=== PATIENT | male | born 1960 | race Caucasian/White ===

== ENCOUNTER 2018-04-10 15:24 | Emergency (ER) | payer BC ==
[2018-04-10] MEDS ORDERED: BENADRYL 50 MG/ML ONE (15:27)
[2018-04-10] MEDS ORDERED: Pepcid 20 MG VIAL IV ONE ×2 (15:27→15:28)
[2018-04-10] MEDS ORDERED: solu-MEDROL 125 MG ONE (15:27)
--- NOTE | 2018-04-10 15:27 | ERPHSYRPT ---
- History of Present Illness Time Seen by Provider: 04/10/18 15:25 Source: patient, family Exam Limitations: no limitations Physician History: 58 y/o white male, who has no known drug allergies, presents with h/o receiving topical dilating medication for his eyes for an eye exam yesterday. pt began having a skin rash. pt was given benadryl. pt seen at [facility] at noon and another dose if benadryl given at noon. rash resolving but pt began complaining of worsening indigestion. he now has cp. pt has no known heart disease. pain is burning and is substernal without radiation Timing/Duration: today Severity: moderate Modifying Factors: Improves With: nothing Associated Symptoms: nausea, heartburn, chest pain, No vomiting, No abdominal pain, No shortness of breath, No diaphoresis, No cough, No fever, No headaches, No loss of appetite, No malaise, No rash, No syncope, No seizure, No weakness Allergies/Adverse Reactions: acetaminophen [From [place]] Adverse Reaction (Mild, Verified 04/10/18 15:57) hydrocodone [From [place]] Adverse Reaction (Mild, Verified 04/10/18 15:57) - Review of Systems Constitutional: No Symptoms, No Fever Eyes: No Symptoms Ears, Nose, & Throat: No Symptoms Respiratory: No Symptoms, No Cough, No Dyspnea, No Stridor, No Wheezing Cardiac: Chest Pain, No Palpitations, No Syncope Abdominal/Gastrointestinal: Nausea, No Vomiting, No Diarrhea Genitourinary Symptoms: No Symptoms, No Dysuria, No Frequency, No Hematuria Musculoskeletal: No Symptoms Skin: No Symptoms Neurological: No Symptoms Psychological: No Symptoms Endocrine: No Symptoms Hematologic/Lymphatic: No Symptoms Immunological/Allergic: No Symptoms All Other Systems: Reviewed and Negative - Past Medical History Pertinent Past Medical History: Yes Neurological History: No Pertinent History ENT History: No Pertinent History Cardiac History: No Pertinent History Respiratory History: No Pertinent History Endocrine Medical History: No Pertinent History Musculoskeletal History: No Pertinent History GI Medical History: No Pertinent History History: No Pertinent History Psycho-Social History: No Pertinent History Male Reproductive Disorders: No Pertinent History - Past Surgical History Neuro Surgical History: No Pertinent History Cardiac: No Pertinent History Respiratory: No Pertinent History Gastrointestinal: No Pertinent History Genitourinary: No Pertinent History Musculoskeletal: No Pertinent History Male Surgical History: No Pertinent History - Nursing Vital Signs Nursing Vital Signs: Initial Vital Signs Pulse Rate 75 04/10/18 15:24 Respiratory Rate 18 04/10/18 15:24 Blood Pressure 203/108 04/10/18 15:24 O2 Sat by Pulse Oximetry 96 04/10/18 15:24 Pain Scale Pain Intensity 0 - Physical Exam General Appearance: moderate distress, alert, anxiety Eye Exam: PERRL/EOMI, eyes nml inspection Ears, Nose, Throat Exam: normal ENT inspection, TMs normal, moist mucous membranes Neck Exam: normal inspection, non-tender, supple, full range of motion Respiratory Exam: normal breath sounds, chest tenderness, lungs clear, airway intact, No respiratory distress, No accessory muscle use, No rhonchi, No wheezing, No stridor Cardiovascular Exam: regular rate/rhythm, normal heart sounds, normal peripheral pulses Gastrointestinal/Abdomen Exam: soft, normal bowel sounds, No tenderness, No guarding, No rebound Rectal Exam: not done Back Exam: normal inspection, normal range of motion, No CVA tenderness, No vertebral tenderness Extremity Exam: normal inspection, normal range of motion, pelvis stable Neurologic Exam: alert, oriented x 3, cooperative, machine zipper trimmer II-XII nml as tested Skin Exam: normal color, warm, dry Lymphatic Exam: No adenopathy SpO2 Interpretation: normal Oxygen Delivery: Room Air - Course Nursing assessment & vital signs reviewed: Yes EKG Interpreted by Me: RATE (78), Sinus Rhythm, NORMAL AXIS, NORMAL INTERVALS, NORMAL QRS (no acute ischemic changes) Ordered Tests: Active Orders 24 hr Category Date Time Status Vp Compliance STAT Care 04/10/18 15:28 Active EKG-ER Only STAT Care 04/10/18 15:28 Active IV Insertion STAT Care 04/10/18 15:28 Active CHEST 1 VIEW (PORTABLE) Stat Exams 04/10/18 15:28 Completed CBC W DIFF Stat Lab 04/10/18 15:44 Completed CMP Stat Lab 04/10/18 15:44 Completed TROPONIN Q3H Lab 04/10/18 15:44 Completed TROPONIN Q3H Lab 04/10/18 18:45 Ordered TROPONIN Q3H Lab 04/10/18 21:45 Ordered Medication Summary Discontinued Medications Generic Name Dose Route Start Last Admin Trade Name Freq PRN Reason Stop Dose Admin Al Hydrox/Mg Hydrox/Simethicone Confirm 04/10/18 16:19 Maalox Es 30 Ml Unit Dose Administered 10/11/18 16:20 Dose 30 ml .ROUTE .STK-MED ONE Diphenhydramine HCl Confirm 04/10/18 15:27 Benadryl 50 Mg/Ml Administered 04/10/18 15:28 Dose 50 mg .ROUTE .STK-MED ONE Diphenhydramine HCl 25 mg 04/10/18 15:28 04/10/18 15:52 Benadryl 50 Mg/Ml IV 04/10/18 15:29 25 mg STAT ONE Administration Famotidine Confirm 04/10/18 15:27 Pepcid 20 Mg Vial Administered 04/10/18 15:28 Dose 40 mg IV .STK-MED ONE Famotidine 40 mg 04/10/18 15:28 04/10/18 15:51 Pepcid 20 Mg Vial IV 04/10/18 15:29 40 mg STAT ONE Administration Lidocaine HCl Confirm 04/10/18 16:19 Xylocaine Hcl Viscous * Administered 04/10/18 16:20 Dose 15 ml .ROUTE .STK-MED ONE Magnesium Hydroxide 45 ml 04/10/18 16:15 04/10/18 16:24 Gi Cocktail 45 Ml (Maalox/Lidocaine) PO 04/10/18 16:16 45 ml STAT ONE Administration Methylprednisolone Sodium Succinate Confirm 04/10/18 15:27 Solu-Medrol 125 Mg Administered 04/10/18 15:28 Dose 125 mg .ROUTE .STK-MED ONE Methylprednisolone Sodium Succinate 125 mg 04/10/18 15:28 04/10/18 15:52 Solu-Medrol 125 Mg IV 04/10/18 15:29 125 mg STAT ONE Administration Ondansetron HCl 4 mg 04/10/18 15:31 04/10/18 15:52 Zofran 4 Mg/2 Ml Vial IV 04/10/18 15:32 4 mg STAT ONE Administration Ondansetron HCl Confirm 04/10/18 15:33 Zofran 4 Mg/2 Ml Vial Administered 04/10/18 15:34 Dose 4 mg .ROUTE .STK-MED ONE Lab/Rad Data: Laboratory Result Diagrams 04/10/18 15:44 04/10/18 15:44 Laboratory Results 04/10/18 04/10/18 04/10/18 Range/Units 15:44 15:44 15:44 WBC 13.9 H (4.0-10.5) K/mm3 RBC 5.91 H (4.1-5.6) M/mm3 Hgb 18.7 H (12.5-18.0) gm/dl Hct 53.3 H (42-50) % MCV 90.2 (78-100) fl MCH 31.6 (26-32) pg MCHC 35.1 (32-36) g/dl RDW 13.6 (11.5-14.0) % Plt Count 281 (150-450) K/mm3 MPV 9.3 (6-9.5) fl Gran % 72.4 H (36.0-66.0) % Eos # (Auto) 0.03 (0-0.5) Absolute Lymphs (auto) 3.09 (1.0-4.6) Absolute Monos (auto) 0.70 (0.0-1.3) Lymphocytes % 22.2 L (24.0-44.0) % Monocytes % 5.0 (0.0-12.0) % Eosinophils % 0.2 (0.00-5.0) % Basophils % 0.2 (0.0-0.4) % Absolute Granulocytes 10.04 H (1.4-6.9) Basophils # 0.03 (0-0.4) Sodium 140 (137-145) mmol/L Potassium 4.8 (3.5-5.1) mmol/L Chloride 106 (98-107) mmol/L Carbon Dioxide 23 (22-30) mmol/L Anion Gap 15.4 H (5-15) MEQ/L BUN 15 (9-20) mg/dL Creatinine 0.85 (0.66-1.25) mg/dL Estimated GFR > 60.0 ML/MIN Glucose 124 H (74-106) mg/dL Calcium 9.9 (8.4-10.2) mg/dL Total Bilirubin 0.80 (0.2-1.3) mg/dL AST 26 (17-59) U/L ALT 26 (0-50) U/L Alkaline Phosphatase 96 (38-126) U/L Troponin I < 0.012 (0.000-0.034) ng/mL Serum Total Protein 7.9 (6.3-8.2) g/dL Albumin 4.8 (3.5-5.0) g/dL - Progress Progress: improved, re-examined Progress Note: 04/10/18 16:16 pt states he is feeling much better. Counseled pt/family regarding: lab results, diagnosis, need for follow-up, rad results - Departure Time of Disposition: 16:31 Departure Disposition: Home Clinical Impression: Chest pain, Allergic reaction Condition: Stable Critical Care Time: No Referrals: AARON DELGADO [Primary Care Provider] - Additional Instructions: drink plenty of fluids. follow up with primary doctor for further management. continue benadryl 25mg orally 3 times daily for 3 days. Prescriptions: Prednisone 10 mg [Deltasone 10 mg] 10 mg PO TID #12 tablet Ranitidine HCl [Zantac] 150 mg PO BID #10 tablet
[2018-04-10] MEDS ORDERED: BENADRYL 50 MG/ML IV ONE (15:28)
[2018-04-10] MEDS ORDERED: solu-MEDROL 125 MG IV ONE (15:28)
[2018-04-10] MEDS ORDERED: Zofran 4 MG/2 ML VIAL IV ONE (15:31)
[2018-04-10] MEDS ORDERED: Zofran 4 MG/2 ML VIAL ONE (15:33)
[2018-04-10 15:43] LABS: BASOPHIL % 0.2 % (0.0-0.4); Basophil (Absolute #) 0.03 (0-0.4); Eosinophil % 0.2 % (0.00-5.0); Eosinophil (Absolute #) 0.03 (0-0.5); Granulocyte Absolute (ANC) 10.04 (1.4-6.9); Granulocytes % 72.4 % (36.0-66.0); Hematocrit 53.3 % (42-50); Hemoglobin 18.7 gm/dl (12.5-18.0); Lymphocyte (Absolute #) 3.09 (1.0-4.6); Lymphocytes % 22.2 % (24.0-44.0); Mean Cell Volume 90.2 fl (78-100); Mean Corpuscular Hemoglobin 31.6 pg (26-32); Mean Corpuscular Hgb Concent. 35.1 g/dl (32-36); Mean Platelet Volume 9.3 fl (6-9.5); Platelet Count 281 K/mm3 (150-450); Red Blood Count 5.91 M/mm3 (4.1-5.6); Red Cell Distribution Width 13.6 % (11.5-14.0); White Blood Count 13.9 K/mm3 (4.0-10.5)
[2018-04-10 16:05] LABS: ALBUMIN 4.8 g/dL (3.5-5.0); ALKALINE PHOSPHATASE 96 U/L (38-126); ANION GAP 15.4 MEQ/L (5-15); BLOOD UREA NITROGEN 15 mg/dL (9-20); CHLORIDE 106 mmol/L (98-107); Calcium 9.9 mg/dL (8.4-10.2); Carbon Dioxide 23 mmol/L (22-30); Creatinine 1 0.85 mg/dL (0.66-1.25); Glucose 124 mg/dL (74-106); Potassium 4.8 mmol/L (3.5-5.1); SGOT/AST 26 U/L (17-59); SGPT/ALT 26 U/L (0-50); SODIUM 140 mmol/L (137-145); Total Protein 7.9 g/dL (6.3-8.2)
--- NOTE | 2018-04-10 16:09 | XRAY ---
Indication: Chest pain. Short of breath. Comparison: December 28, 2008. Portable chest again demonstrates normal heart and lungs. Bony thorax intact with interval distal right clavicle resection.
[2018-04-10] MEDS ORDERED: GI COCKTAIL 45 ML (Maalox/Lidocaine) PO ONE (16:15)
[2018-04-10] MEDS ORDERED: MAALOX ES 30 ML UNIT DOSE ONE (16:19)
[2018-04-10] MEDS ORDERED: XYLOCAINE HCl Viscous ONE (16:19)
[2018-04-10 16:26] VITALS: O2SAT 98
[2018-04-10 17:15] VITALS: BP 131/78; PULSE 80
== END 2018-04-10 17:14 | disposition home or self-care (01) ==
LOC: ED 15:24
DX: R07.9 Chest pain, unspecified (principal); R21 Rash and other nonspecific skin eruption; T78.40XA Allergy, unspecified, initial encounter
CPT/HCPCS: 36000; 36415; 71045; 80053; 84484; 85025; 93005; 93041; 96374; 96375; 99284; J1200; J2405; J2930; A9270-GY

== ENCOUNTER 2018-04-11 21:50 | Observation (INO) | payer BC ==
[2018-04-11] MEDS ORDERED: Nitrostat 0.4 MG (ED) SL ONE ×3 (22:21→22:47)
[2018-04-11] MEDS ORDERED: BABY ASPIRIN 81 MG CHEW PO ONE (22:21)
[2018-04-11] MEDS ORDERED: BABY ASPIRIN 81 MG CHEW ONE (22:28)
[2018-04-11] MEDS ORDERED: Sodium Chloride 0.9% 1000 ML 1,000 ML IV SCH (22:30)
[2018-04-11 22:31] LABS: BASOPHIL % 0.3 % (0.0-0.4); Basophil (Absolute #) 0.05 (0-0.4); Eosinophil % 0.2 % (0.00-5.0); Eosinophil (Absolute #) 0.04 (0-0.5); Granulocyte Absolute (ANC) 15.18 (1.4-6.9); Hemoglobin 17.7 gm/dl (12.5-18.0); Lymphocyte (Absolute #) 3.49 (1.0-4.6); Lymphocytes % 17.5 % (24.0-44.0); Mean Cell Volume 91.9 fl (78-100); Mean Corpuscular Hemoglobin 31.9 pg (26-32); Mean Corpuscular Hgb Concent. 34.7 g/dl (32-36); Mean Platelet Volume 9.7 fl (6-9.5); Platelet Count 306 K/mm3 (150-450); Red Blood Count 5.55 M/mm3 (4.1-5.6); Red Cell Distribution Width 13.9 % (11.5-14.0)
--- NOTE | 2018-04-11 22:32 | ERPHSYRPT ---
- History of Present Illness Time Seen by Provider: 04/11/18 22:10 Historian: patient Exam Limitations: clinical condition Patient Subjective Stated Complaint: pt is alert and oriented. pt is ambulatory with steady gait. pt has c/o cp that sometimes radiates to his right side of his chest. pt denies n/v today but states he did vomit yesterday 2-3 times. pt states he has had some lightheadedness and dizziness associated with the chest pain. O2 NC applied. pt resting in bed. pedal pulses equal. Triage Nursing Assessment: see above Physician History: PATIENT WITH A HISTORY OF TYPE 2 DIABETES, RECENTLY TREATED FOR HYPERTENSION OVER PAST 2 WEEKS COMPLAINS OF SUBSTERNAL CHEST PAINS SINCE 12 NOON TODAY CONSTANT, PAIN SCALE 7/10. DENIES ASSOCIATED DYSPNEA, DIAPHORESIS, PALPITATIONS , RADIATION OF PAIN TO NECK, JAWS OR ARMS. HAS HAD A PREVIOUS STRESS TEST AT AGE 38. HAD ASSOCIATED DIZZINESS WITH HIS CHEST PAIN. HAD SIMILAR EPISODE OF CHEST PAIN WHILE IN THE EMERGENCY ROOM YESTERDAY FOR TREATMENT OF ALLERGIC REACTION. Timing/Duration: today Activities at Onset: none Quality: fullness, pressure Location: substernal Chest Pain Radiation: no radiation Severity of Pain-Max: moderate Modifying Factors: Improves With: nothing Prior Chest Pain/Cardiac Workup: no prior chest pain Nitro Today/Relief: no nitro taken today, provided by ED Aspirin Treatment Today: no aspirin today, 81 mg x 4, provided by ED Allergies/Adverse Reactions: acetaminophen [From [place]] Adverse Reaction (Mild, Verified 04/10/18 15:57) hydrocodone [From [place]] Adverse Reaction (Mild, Verified 04/10/18 15:57) Home Medications: Insulin Degludec [Tresiba Flextouch U-200] 60 units SQ DAILY 04/11/18 [History] Lisinopril 20 mg [Zestril 20 MG] 20 mg PO DAILY 04/11/18 [History] Metformin HCl Xr 500 mg [Glucophage XR 500 MG] 1,000 mg PO DAILY 04/11/18 [History] Zolpidem Tartrate 10 mg [Ambien 10 MG] 10 mg PO HS PRN PRN 04/11/18 [History ] Hx Tetanus, Diphtheria Vaccination/Date Given: No Immunizations Up to Date: Yes - Review of Systems Constitutional: No Fever, No Chills Eyes: No Symptoms Ears, Nose, & Throat: No Symptoms Respiratory: No Symptoms, No Cough, No Dyspnea Cardiac: Chest Pain, No Edema, No Syncope Abdominal/Gastrointestinal: No Symptoms, No Abdominal Pain, No Nausea, No Vomiting, No Diarrhea Genitourinary Symptoms: No Symptoms, No Dysuria Musculoskeletal: No Symptoms, No Back Pain, No Neck Pain Skin: No Symptoms, No Rash Neurological: No Dizziness, No Focal Weakness, No Sensory Changes Psychological: No Symptoms Endocrine: No Symptoms All Other Systems: Reviewed and Negative - Past Medical History Pertinent Past Medical History: Yes Neurological History: No Pertinent History ENT History: No Pertinent History Cardiac History: No Pertinent History Respiratory History: No Pertinent History Endocrine Medical History: Diabetes Type II Musculoskeletal History: No Pertinent History GI Medical History: No Pertinent History History: No Pertinent History Psycho-Social History: No Pertinent History Male Reproductive Disorders: No Pertinent History - Past Surgical History Past Surgical History: Yes Neuro Surgical History: No Pertinent History Cardiac: No Pertinent History Respiratory: No Pertinent History Gastrointestinal: No Pertinent History Genitourinary: No Pertinent History Musculoskeletal: No Pertinent History Male Surgical History: No Pertinent History Other Surgical History: shoulder on left shoulder - Social History Smoking Status: Current every day smoker How long have you smoked: 40 years Exposure to second hand smoke: Yes Drug Use: none Patient Lives Alone: No - Nursing Vital Signs Nursing Vital Signs: Initial Vital Signs Temperature 98.4 F 04/11/18 21:51 Pulse Rate 70 04/11/18 21:51 Respiratory Rate 16 04/11/18 21:51 Blood Pressure 191/93 04/11/18 21:51 O2 Sat by Pulse Oximetry 95 04/11/18 21:51 Pain Scale Pain Intensity 7 - Physical Exam General Appearance: no apparent distress, alert Eye Exam: PERRL/EOMI, eyes nml inspection Ears, Nose, Throat Exam: normal ENT inspection, moist mucous membranes Neck Exam: normal inspection, non-tender, supple, full range of motion Respiratory Exam: normal breath sounds, lungs clear, No respiratory distress Cardiovascular Exam: regular rate/rhythm, normal heart sounds Gastrointestinal/Abdomen Exam: soft, normal bowel sounds (NONTENDER), No tenderness, No mass Back Exam: normal inspection, No CVA tenderness, No vertebral tenderness Extremity Exam: normal inspection, normal range of motion Neurologic Exam: alert, oriented x 3, cooperative, normal mood/affect, sensation nml, No motor deficits Skin Exam: warm, dry, other (CLUSTERS OF VESICULAR LESIONS OVER UPPER EXTREMITIES AND TRUNK) SpO2 Interpretation: normal SpO2: 95 Oxygen Delivery: Room Air - Course EKG Interpreted by Me: RATE, Sinus Rhythm, NORMAL AXIS - Radiology Exams Chest X-ray Interpretation: Interpreted by me, Negative, No Infiltrates - CT Exams Chest CT Interpretation: Tele-radiologist Report (NO EVIDENCE OF PULMONARY EMBOLIC DISEASE, CONSOLIDATION, PNEUMOTHORAX OR PLEURAL EFFUSION) Ordered Tests: Active Orders 24 hr Category Date Time Status Tobacco Baler STAT Care 04/11/18 22:22 Active EKG-ER Only STAT Care 04/11/18 22:21 Active IV Insertion STAT Care 04/11/18 22:21 Active Oxygen-ED Only NASAL CANNULA 2 lpm Care 04/11/18 22:21 Active CHEST 1 VIEW (PORTABLE) Stat Exams 04/11/18 22:22 Completed CHEST WITH CONTRAST [CT] Stat Exams 04/11/18 23:07 Ordered CBC W DIFF Stat Lab 04/11/18 22:00 Completed CMP Stat Lab 04/11/18 22:00 Completed D-DIMER QUANTITATION Stat Lab 04/11/18 22:00 Completed PROTIME WITH INR Stat Lab 04/11/18 22:00 Completed TROPONIN Q3H Lab 04/11/18 22:00 Completed TROPONIN Q3H Lab 04/12/18 01:30 Ordered TROPONIN Q3H Lab 04/12/18 04:30 Ordered TROPONIN Q3H Lab 04/12/18 07:30 Ordered TROPONIN Q3H Lab 04/12/18 10:30 Ordered Medication Summary Generic Name Dose Route Start Last Admin Trade Name Freq PRN Reason Stop Dose Admin Sodium Chloride 1,000 mls @ 50 mls/hr 04/11/18 22:30 04/11/18 22:32 Sodium Chloride 0.9% 1000 Ml IV 05/11/18 22:29 50 mls/hr .Q20H ILANA Administration Discontinued Medications Generic Name Dose Route Start Last Admin Trade Name Freq PRN Reason Stop Dose Admin Al Hydrox/Mg Hydrox/Simethicone Confirm 04/11/18 23:50 Maalox Es 30 Ml Unit Dose Administered 04/11/18 23:51 Dose 30 ml .ROUTE .STK-MED ONE Aspirin 324 mg 04/11/18 22:21 04/11/18 22:30 Baby Aspirin 81 Mg Chew PO 04/11/18 22:22 324 mg STAT ONE Administration Aspirin Confirm 04/11/18 22:28 Baby Aspirin 81 Mg Chew Administered 04/11/18 22:29 Dose 324 mg .ROUTE .STK-MED ONE Fentanyl Citrate 50 mcg 04/11/18 23:05 Sublimaze 100 Mcg/2 Ml IV 04/11/18 23:06 STAT ONE Lidocaine HCl Confirm 04/11/18 23:50 Xylocaine Hcl Viscous * Administered 04/11/18 23:51 Dose 15 ml .ROUTE .STK-MED ONE Magnesium Hydroxide 45 ml 04/11/18 23:52 04/11/18 23:54 Gi Cocktail 45 Ml (Maalox/Lidocaine) PO 04/11/18 23:53 45 ml STAT ONE Administration Nitroglycerin 0.4 mg 04/11/18 22:21 04/11/18 22:30 Nitrostat 0.4 Mg (Ed) SL 04/11/18 22:22 0.4 mg STAT ONE Administration Nitroglycerin Confirm 04/11/18 22:28 Nitrostat 0.4 Mg (Ed) Administered 04/11/18 22:29 Dose 1.2 mg SL .STK-MED ONE Nitroglycerin 0.4 mg 04/11/18 22:47 04/11/18 22:51 Nitrostat 0.4 Mg (Ed) SL 04/11/18 22:48 0.4 mg STAT ONE Administration Ondansetron HCl 4 mg 04/11/18 23:06 04/11/18 23:10 Zofran 4 Mg/2 Ml Vial IV 04/11/18 23:07 4 mg STAT ONE Administration Ondansetron HCl Confirm 04/11/18 23:08 Zofran 4 Mg/2 Ml Vial Administered 04/11/18 23:09 Dose 4 mg .ROUTE .STK-MED ONE Lab/Rad Data: Laboratory Result Diagrams 04/11/18 22:00 04/11/18 22:00 Laboratory Results 04/11/18 04/11/18 04/11/18 Range/Units 22:00 22:00 22:00 WBC (4.0-10.5) K/mm3 RBC (4.1-5.6) M/mm3 Hgb (12.5-18.0) gm/dl Hct (42-50) % MCV (78-100) fl MCH (26-32) pg MCHC (32-36) g/dl RDW (11.5-14.0) % Plt Count (150-450) K/mm3 MPV (6-9.5) fl Gran % (36.0-66.0) % Eos # (Auto) (0-0.5) Absolute Lymphs (auto) (1.0-4.6) Absolute Monos (auto) (0.0-1.3) Lymphocytes % (24.0-44.0) % Monocytes % (0.0-12.0) % Eosinophils % (0.00-5.0) % Basophils % (0.0-0.4) % Absolute Granulocytes (1.4-6.9) Basophils # (0-0.4) PT 12.3 (8.83-12.87) SECONDS INR 1.06 (0.8-3.0) D-Dimer 1093 H* (215-500) ng/mL Sodium 144 (137-145) mmol/L Potassium 3.9 (3.5-5.1) mmol/L Chloride 104 (98-107) mmol/L Carbon Dioxide 29 (22-30) mmol/L Anion Gap 14.9 (5-15) MEQ/L BUN 24 H (9-20) mg/dL Creatinine 0.99 (0.66-1.25) mg/dL Estimated GFR > 60.0 ML/MIN Glucose 127 H (74-106) mg/dL Calcium 10.3 H (8.4-10.2) mg/dL Total Bilirubin 0.60 (0.2-1.3) mg/dL AST 20 (17-59) U/L ALT 24 (0-50) U/L Alkaline Phosphatase 89 (38-126) U/L Troponin I < 0.012 (0.000-0.034) ng/mL Serum Total Protein 7.8 (6.3-8.2) g/dL Albumin 4.9 (3.5-5.0) g/dL 04/11/18 Range/Units 22:00 WBC 20.0 H (4.0-10.5) K/mm3 RBC 5.55 (4.1-5.6) M/mm3 Hgb 17.7 (12.5-18.0) gm/dl Hct 51.0 H (42-50) % MCV 91.9 (78-100) fl MCH 31.9 (26-32) pg MCHC 34.7 (32-36) g/dl RDW 13.9 (11.5-14.0) % Plt Count 306 (150-450) K/mm3 MPV 9.7 H (6-9.5) fl Gran % 76.0 H (36.0-66.0) % Eos # (Auto) 0.04 (0-0.5) Absolute Lymphs (auto) 3.49 (1.0-4.6) Absolute Monos (auto) 1.20 (0.0-1.3) Lymphocytes % 17.5 L (24.0-44.0) % Monocytes % 6.0 (0.0-12.0) % Eosinophils % 0.2 (0.00-5.0) % Basophils % 0.3 (0.0-0.4) % Absolute Granulocytes 15.18 H (1.4-6.9) Basophils # 0.05 (0-0.4) PT (8.83-12.87) SECONDS INR (0.8-3.0) D-Dimer (215-500) ng/mL Sodium (137-145) mmol/L Potassium (3.5-5.1) mmol/L Chloride (98-107) mmol/L Carbon Dioxide (22-30) mmol/L Anion Gap (5-15) MEQ/L BUN (9-20) mg/dL Creatinine (0.66-1.25) mg/dL Estimated GFR ML/MIN Glucose (74-106) mg/dL Calcium (8.4-10.2) mg/dL Total Bilirubin (0.2-1.3) mg/dL AST (17-59) U/L ALT (0-50) U/L Alkaline Phosphatase (38-126) U/L Troponin I (0.000-0.034) ng/mL Serum Total Protein (6.3-8.2) g/dL Albumin (3.5-5.0) g/dL - Progress Progress: improved Progress Note: 04/12/18 00:05 IV NORMAL SALINE 100ML/HR, NTG 0.4MG SL Q5MIN X 2, ZOFRAN 4MG IM, GI COCKTAIL ORALLY IMPROVES FULLNESS IN CHEST. Discussed with : Osmany (DISCUSSED WITH DR MORGAN AT 0003 FOR OBSERVATION) - Departure Time of Disposition: 00:13 Departure Disposition: Observation Clinical Impression: ATYPICAL CHEST PAIN, CONTACT DERMATITIS Condition: Stable Critical Care Time: No Referrals: AARON DELGADO [Primary Care Provider] -
[2018-04-11 22:37] LABS: ALBUMIN 4.9 g/dL (3.5-5.0); ALKALINE PHOSPHATASE 89 U/L (38-126); ANION GAP 14.9 MEQ/L (5-15); BLOOD UREA NITROGEN 24 mg/dL (9-20); CHLORIDE 104 mmol/L (98-107); Calcium 10.3 mg/dL (8.4-10.2); Carbon Dioxide 29 mmol/L (22-30); Creatinine 1 0.99 mg/dL (0.66-1.25); Glucose 127 mg/dL (74-106); Potassium 3.9 mmol/L (3.5-5.1); SGOT/AST 20 U/L (17-59); SGPT/ALT 24 U/L (0-50); SODIUM 144 mmol/L (137-145); Total Protein 7.8 g/dL (6.3-8.2)
[2018-04-11 22:56] LABS: INR 1.06 (0.8-3.0)
[2018-04-11] MEDS ORDERED: SUBLIMAZE 100 MCG/2 ML IV ONE (23:05)
[2018-04-11] MEDS ORDERED: Zofran 4 MG/2 ML VIAL IV ONE (23:06)
[2018-04-11] MEDS ORDERED: Zofran 4 MG/2 ML VIAL ONE (23:08)
[2018-04-11] MEDS ORDERED: HOLD METFORMIN PRODUCTS FOR 48 HOURS MC SCH (23:30)
--- NOTE | 2018-04-11 23:30 | XRAY ---
Indication: Chest pain. Comparison: April 10, 2018. Portable chest remains clear. Heart and mediastinal structures within normal limits. No new/acute findings.
[2018-04-11] MEDS ORDERED: XYLOCAINE HCl Viscous ONE (23:50)
[2018-04-11] MEDS ORDERED: MAALOX ES 30 ML UNIT DOSE ONE (23:50)
[2018-04-11] MEDS ORDERED: GI COCKTAIL 45 ML (Maalox/Lidocaine) PO ONE (23:52)
[2018-04-12] MEDS ORDERED: TYLENOL 325 MG PO PRN (00:14)
[2018-04-12] MEDS ORDERED: Senokot-S Tablet PO PRN (00:14)
[2018-04-12] MEDS ORDERED: Nitrostat 0.4 MG Tablet SL PRN (00:14)
[2018-04-12] MEDS ORDERED: MILK OF MAGNESIA 30 ML PO PRN (00:14)
[2018-04-12] MEDS ORDERED: MAALOX ES 30 ML UNIT DOSE PO PRN (00:14)
[2018-04-12] MEDS ORDERED: NovoLOG Insulin SQ PRN (00:14)
[2018-04-12] MEDS ORDERED: Ambien 10 MG PO PRN ×2 (00:16→09:30)
[2018-04-12] MEDS ORDERED: BENADRYL 25 MG CAPSULE PO PRN (00:18)
[2018-04-12] MEDS ORDERED: NITRO-BID 2% UD PACKETS TOP ONE (00:19)
[2018-04-12] MEDS ORDERED: PROTONIX 40 MG IV IV SCH ×3 (00:30→22:00)
[2018-04-12] MEDS ORDERED: SUBLIMAZE 100 MCG/2 ML ONE (01:53)
[2018-04-12] MEDS: Zofran 4 MG/2 ML VIAL IV PRN ×2 (04:27→08:30)
[2018-04-12] MEDS ORDERED: MORPHINE SULFATE 4 MG INJ ONE ×2 (04:33→06:34)
[2018-04-12] MEDS: MORPHINE SULFATE 2 MG INJ IV PRN ×5 (04:34→13:15)
[2018-04-12] MEDS: NITRO-BID 2% UD PACKETS TOP SCH ×2 (05:53→14:35)
[2018-04-12 05:55] LABS: Risk Ratio 6.6
--- NOTE | 2018-04-12 07:09 | XRAY ---
Indication: Chest pain. Elevated d-dimer. Status post left shoulder surgery. Multiple contiguous axial images obtained through the chest using 100 cc Isovue 370 contrast and PE protocol. Comparison: None There is good opacification of the pulmonary arteries to include the lobar and segmental branches. No filling defect or pulmonary embolus. Heart is not enlarged. Aorta is normal in course and caliber. 12 x 19 mm precarinal lymph node. Right hilar calcified nodes. Mid to distal esophagus demonstrates circumferential wall thickening, possible esophagitis. Examination of the lung parenchyma demonstrate moderate bilateral dependent atelectasis. Minimal pulmonary emphysema with left base bleb. No suspicious pulmonary mass, infiltrate, or effusion. Bony thorax intact. Limited upper abdomen demonstrates tiny calcified splenic granuloma. Impression: 1. Negative pulmonary embolus. No acute cardiopulmonary abnormalities. 2. Minimal pulmonary emphysema and evidence for old granulomatous disease. 3. Mid to distal esophageal circumferential wall thickening. Rule out esophagitis. 4. Prominent precarinal lymph node. Comment: Preliminary interpretation was made by [facility]. Esophageal wall thickening not reported and not felt to be critical. CTDI 22.90 Comment:
--- NOTE | 2018-04-12 09:06 | PCM.HP ---
History of Present Illness - Chief Complaint Chief Complaint: chest pain R/O Date: 04/12/18 History of Present Illness: is a 58 year old male. He developed hives after having an eye drop and came to ED where he was given benadryl and steroids and discharged home and the hives improved. He ate a hamburger around noon yesterday without difficulty but since that time has a severe pain in his substernal area that is worse anytime he tries to swallow. he instantly regurgitates anything he is trying to drink. The medication calmed the pain down some but it is still present and he has tried drinking this am a few sips of milk and it instantly came back up. He was taking large amounts of ibuprofen prior to his shoulder surgery 2 weeks ago and has been using the steroids now for 2 days from the allergic drug reaction. He has not had previous known history of gerd and took no medication for this. He has not been having any change in bowel movements. No black bloody or tarry stools and no hematemesis or coffee ground emesis. He was also started on lisinopril about 3 weeks ago for elevated blood pressures prior to his surgery. - Review of Systems Constitutional: No Fever, No Chills Eyes: No Symptoms Ears, Nose, & Throat: No Symptoms Respiratory: No Cough, No Short Of Breath Cardiac: Chest Pain, No Edema, No Syncope Abdominal/Gastrointestinal: Abdominal Pain, Nausea, No Vomiting, No Diarrhea Genitourinary Symptoms: No Dysuria Musculoskeletal: No Back Pain, No Neck Pain Skin: No Rash Neurological: No Dizziness, No Focal Weakness, No Sensory Changes Psychological: No Symptoms Endocrine: No Symptoms Hematologic/Lymphatic: No Symptoms Immunological/Allergic: No Symptoms Medications & Allergies Home Medications: Home Medication List Prednisone 10 mg [Deltasone 10 mg] 10 mg PO TID #12 tablet 04/10/18 [Rx Confirmed 04/11/18] Ranitidine HCl [Zantac] 150 mg PO BID #10 tablet 04/10/18 [Rx Confirmed 04/11/18 ] Insulin Degludec [Tresiba Flextouch U-200] 60 units SQ DAILY 04/11/18 [History Confirmed 04/11/18] Lisinopril 20 mg [Zestril 20 MG] 20 mg PO DAILY 04/11/18 [History Confirmed 04/11/18] Metformin HCl Xr 500 mg [Glucophage XR 500 MG] 1,000 mg PO DAILY 04/11/18 [History Confirmed 04/11/18] Zolpidem Tartrate 10 mg [Ambien 10 MG] 10 mg PO HS PRN PRN 04/11/18 [ History Confirmed 04/11/18] Allergies/Adverse Reactions: Allergies Allergy/AdvReac Type Severity Reaction Status Date / Time acetaminophen [From [place]] AdvReac Mild Verified 04/10/18 15:57 hydrocodone [From [place]] AdvReac Mild Verified 04/10/18 15:57 - Past Medical History Past Medical History: Yes Neurological History: No Pertinent History ENT History: No Pertinent History Cardiac History: No Pertinent History Respiratory History: No Pertinent History Endocrine Medical History: Diabetes Type II Musculoskelatal History: No Pertinent History GI Medical History: No Pertinent History History: No Pertinent History Pyscho-Social History: No Pertinent History Male Reproductive Disorders: No Pertinent History - Past Surgical History Past Surgical History: Yes Neuro Surgical History: No Pertinent History Cardiac History: No Pertinent History Respiratory Surgery: No Pertinent History GI Surgical History: No Pertinent History Genitourinary Surgical Hx: No Pertinent History Musculskeletal Surgical Hx: No Pertinent History Male Surgical History: No Pertinent History Other Surgical History: shoulder on left shoulder-bone spurs - Social History Smoking Status: Current every day smoker How long have you smoked: 40 years Exposure to second hand smoke: No Alcohol: None Drug Use: none - Physical Exam Vital Signs: Vital Signs - 24 hr Temp Pulse Pulse Resp BP Pulse Ox 04/12/18 08:00 93 L 04/12/18 07:19 97.8 F 75 18 140/78 93 L 04/12/18 04:00 98.3 F 77 18 130/75 93 L 04/12/18 03:30 97 04/12/18 01:24 97.8 F 76 18 158/77 98 04/12/18 00:13 95 04/11/18 23:40 74 18 167/91 96 04/11/18 22:41 78 22 165/84 96 04/11/18 21:51 98.4 F 74 70 16 191/93 95 Oxygen-Last 24 hours O2 Percentage 2 Liters = 28% O2 Percentage 2 Liters = 28% O2 Percentage 2 Liters = 28% O2 Percentage 2 Liters = 28% O2 Percentage 2 Liters = 28% O2 Percentage 2 Liters = 28% General Appearance: no apparent distress, alert Neurologic Exam: alert, oriented x 3, cooperative, normal mood/affect, nml cerebellar function, nml station & gait, sensation nml, No motor deficits Eye Exam: PERRL/EOMI, eyes nml inspection Ears, Nose, Throat Exam: normal ENT inspection, TMs normal, pharynx normal, moist mucous membranes Neck Exam: normal inspection, non-tender, supple, full range of motion Respiratory Exam: normal breath sounds, lungs clear, No respiratory distress Cardiovascular Exam: regular rate/rhythm, normal heart sounds, normal peripheral pulses Gastrointestinal/Abdomen Exam: soft, normal bowel sounds, No tenderness, No mass Back Exam: normal inspection, normal range of motion, No CVA tenderness, No vertebral tenderness Extremity Exam: normal inspection, normal range of motion, pelvis stable Skin Exam: normal color, warm, dry, No rash Lymphatic Exam: No adenopathy Results - Labs Lab/Micro Results: Accuchecks Date 04/12/18 Time 07:30 Accucheck Value: 105 Lab Results-Last 24 Hours 04/11/18 04/11/18 04/11/18 Range/Units 22:00 22:00 22:00 WBC 20.0 H (4.0-10.5) K/mm3 RBC 5.55 (4.1-5.6) M/mm3 Hgb 17.7 (12.5-18.0) gm/dl Hct 51.0 H (42-50) % MCV 91.9 (78-100) fl MCH 31.9 (26-32) pg MCHC 34.7 (32-36) g/dl RDW 13.9 (11.5-14.0) % Plt Count 306 (150-450) K/mm3 MPV 9.7 H (6-9.5) fl Gran % 76.0 H (36.0-66.0) % Eos # (Auto) 0.04 (0-0.5) Absolute Lymphs (auto) 3.49 (1.0-4.6) Absolute Monos (auto) 1.20 (0.0-1.3) Lymphocytes % 17.5 L (24.0-44.0) % Monocytes % 6.0 (0.0-12.0) % Eosinophils % 0.2 (0.00-5.0) % Basophils % 0.3 (0.0-0.4) % Absolute Granulocytes 15.18 H (1.4-6.9) Basophils # 0.05 (0-0.4) PT 12.3 (8.83-12.87) SECONDS INR 1.06 (0.8-3.0) D-Dimer 1093 H* (215-500) ng/mL Sodium 144 (137-145) mmol/L Potassium 3.9 (3.5-5.1) mmol/L Chloride 104 (98-107) mmol/L Carbon Dioxide 29 (22-30) mmol/L Anion Gap 14.9 (5-15) MEQ/L BUN 24 H (9-20) mg/dL Creatinine 0.99 (0.66-1.25) mg/dL Estimated GFR > 60.0 ML/MIN Glucose 127 H (74-106) mg/dL Calcium 10.3 H (8.4-10.2) mg/dL Total Bilirubin 0.60 (0.2-1.3) mg/dL AST 20 (17-59) U/L ALT 24 (0-50) U/L Alkaline Phosphatase 89 (38-126) U/L Troponin I (0.000-0.034) ng/mL Serum Total Protein 7.8 (6.3-8.2) g/dL Albumin 4.9 (3.5-5.0) g/dL Triglycerides (30-150) mg/dL Cholesterol (50-200) mg/dL LDL Cholesterol (30-100) mg/dL HDL Cholesterol (40-60) mg/dL Heart Disease Risk Ratio 04/11/18 04/12/18 04/12/18 Range/Units 22:00 01:45 04:40 WBC (4.0-10.5) K/mm3 RBC (4.1-5.6) M/mm3 Hgb (12.5-18.0) gm/dl Hct (42-50) % MCV (78-100) fl MCH (26-32) pg MCHC (32-36) g/dl RDW (11.5-14.0) % Plt Count (150-450) K/mm3 MPV (6-9.5) fl Gran % (36.0-66.0) % Eos # (Auto) (0-0.5) Absolute Lymphs (auto) (1.0-4.6) Absolute Monos (auto) (0.0-1.3) Lymphocytes % (24.0-44.0) % Monocytes % (0.0-12.0) % Eosinophils % (0.00-5.0) % Basophils % (0.0-0.4) % Absolute Granulocytes (1.4-6.9) Basophils # (0-0.4) PT (8.83-12.87) SECONDS INR (0.8-3.0) D-Dimer (215-500) ng/mL Sodium (137-145) mmol/L Potassium (3.5-5.1) mmol/L Chloride (98-107) mmol/L Carbon Dioxide (22-30) mmol/L Anion Gap (5-15) MEQ/L BUN (9-20) mg/dL Creatinine (0.66-1.25) mg/dL Estimated GFR ML/MIN Glucose (74-106) mg/dL Calcium (8.4-10.2) mg/dL Total Bilirubin (0.2-1.3) mg/dL AST (17-59) U/L ALT (0-50) U/L Alkaline Phosphatase (38-126) U/L Troponin I < 0.012 < 0.012 < 0.012 (0.000-0.034) ng/mL Serum Total Protein (6.3-8.2) g/dL Albumin (3.5-5.0) g/dL Triglycerides (30-150) mg/dL Cholesterol (50-200) mg/dL LDL Cholesterol (30-100) mg/dL HDL Cholesterol (40-60) mg/dL Heart Disease Risk Ratio 04/12/18 04/12/18 Range/Units 04:40 07:50 WBC (4.0-10.5) K/mm3 RBC (4.1-5.6) M/mm3 Hgb (12.5-18.0) gm/dl Hct (42-50) % MCV (78-100) fl MCH (26-32) pg MCHC (32-36) g/dl RDW (11.5-14.0) % Plt Count (150-450) K/mm3 MPV (6-9.5) fl Gran % (36.0-66.0) % Eos # (Auto) (0-0.5) Absolute Lymphs (auto) (1.0-4.6) Absolute Monos (auto) (0.0-1.3) Lymphocytes % (24.0-44.0) % Monocytes % (0.0-12.0) % Eosinophils % (0.00-5.0) % Basophils % (0.0-0.4) % Absolute Granulocytes (1.4-6.9) Basophils # (0-0.4) PT (8.83-12.87) SECONDS INR (0.8-3.0) D-Dimer (215-500) ng/mL Sodium (137-145) mmol/L Potassium (3.5-5.1) mmol/L Chloride (98-107) mmol/L Carbon Dioxide (22-30) mmol/L Anion Gap (5-15) MEQ/L BUN (9-20) mg/dL Creatinine (0.66-1.25) mg/dL Estimated GFR ML/MIN Glucose (74-106) mg/dL Calcium (8.4-10.2) mg/dL Total Bilirubin (0.2-1.3) mg/dL AST (17-59) U/L ALT (0-50) U/L Alkaline Phosphatase (38-126) U/L Troponin I < 0.012 (0.000-0.034) ng/mL Serum Total Protein (6.3-8.2) g/dL Albumin (3.5-5.0) g/dL Triglycerides 317 H (30-150) mg/dL Cholesterol 179 (50-200) mg/dL LDL Cholesterol 93 (30-100) mg/dL HDL Cholesterol 27 L (40-60) mg/dL Heart Disease Risk Ratio 6.6 Accuchecks Date 04/12/18 Time 07:30 Accucheck Value: 105 - Radiology Impressions Radiology Exams & Impressions: Radiology Procedures Category Date Time Status CHEST 1 VIEW (PORTABLE) Stat Exams 04/11/18 22:22 Completed CHEST WITH CONTRAST [CT] Stat Exams 04/11/18 23:07 Completed - Other Procedures and Tests Respiratory Therapy 04/12/18 07:00 Oxygen NASAL CANNULA 2 lpm 04/13/18 05:00 EKG DAILY 04/14/18 05:00 EKG DAILY 04/15/18 05:00 EKG DAILY Assessment/Plan (1) Inability to swallow Current Visit: Yes Status: Acute Assessment & Plan: there is thickening on the chest ct of esophagus with the abrupt onset after lunch yesterday concern for food bolus possibly being stuck as well given he is unable to swallow liquids either. This causes his chest pain no other chest pain cardiac troponins are negative and ekg is unchanged. will increase protonix to 40 bid make npo for now increase iv fluids consult surgery for possible egd monitor bp closely much better this am with the nitro patch last night. will also change the lisinopril when he is able to swallow pills again as a possible cause to his allergic reaction as it was just started 2 weeks ago. Code(s): R13.0 - APHAGIA (2) Odynophagia Current Visit: Yes Status: Acute Code(s): R13.10 - DYSPHAGIA, UNSPECIFIED (3) Type 2 diabetes mellitus Current Visit: Yes Status: Chronic (4) Essential hypertension Current Visit: Yes Status: Chronic Code(s): I10 - ESSENTIAL (PRIMARY) HYPERTENSION
[2018-04-12] MEDS ORDERED: FLUZONE QUAD (36mo-64yo) 2018-2019 SYRINGE IM ONE (10:00)
[2018-04-12] MEDS ORDERED: NON-FORMULARY ITEM (Ranitidine Hcl [Zantac] 150 MG) PO SCH (10:00)
[2018-04-12] MEDS ORDERED: INSULIN DEGLUDEC 60 UNIT SQ SCH (10:00)
[2018-04-12] MEDS ORDERED: DELTASONE 10 MG PO SCH (10:00)
[2018-04-12] MEDS ORDERED: Zestril 20 MG PO SCH (10:00)
[2018-04-12] MEDS ORDERED: Ecotrin 325 MG PO SCH (10:00)
[2018-04-12] MEDS ORDERED: Lactated Ringers 1,000 ML IV SCH ×2 (10:30→17:00)
[2018-04-12] MEDS ORDERED: Dextrose 5%-Lr IV Solution 1000 ML 1,000 ML IV SCH (11:30)
[2018-04-12] MEDS ORDERED: BENADRYL 50 MG/ML IV ONE (13:21)
--- NOTE | 2018-04-12 17:01 | PCM.DCORD ---
- Discharge Discharge Date: 04/12/18 Disposition: Home, Self-Care Condition: Stable Prescriptions: New Losartan Potassium 100 mg PO DAILY #30 tablet PANTOPRAZOLE 40 mg Tablet [Protonix 40MG Tablet] 40 mg PO DAILY #30 tab Continue Ranitidine HCl [Zantac] 150 mg PO BID #10 tablet Insulin Degludec [Tresiba Flextouch U-200] 60 units SQ DAILY Metformin HCl Xr 500 mg [Glucophage XR 500 MG] 1,000 mg PO DAILY Zolpidem Tartrate 10 mg [Ambien 10 MG] 10 mg PO HS PRN PRN PRN Reason: Insomnia Discontinued Prednisone 10 mg [Deltasone 10 mg] 10 mg PO TID #12 tablet Lisinopril 20 mg [Zestril 20 MG] 20 mg PO DAILY Additional Instructions: restart Metformin on Saturday Follow up with: DOROTEO RANGEL [Primary Care Provider] - 1 Week SAMANTHA STODDARD [ACTIVE STAFF] - 1 Week
[2018-04-12 17:04] VITALS: BP 135/69; PULSE 63; O2SAT 93
[2018-04-12] MEDS ORDERED: DIPRIVAN 200 MG/20 ML IV ONE (17:26)
[2018-04-12] MEDS ORDERED: Lantus Insulin SQ SCH (22:00)
--- NOTE | 2018-04-14 08:35 | CONS ---
CONSULT DATE: 04/12/2018 REASON FOR CONSULT: Possible foreign body in the esophagus associated with some dysphagia. HISTORY: The patient is a 58 year-old male who has been complaining of some retrosternal pain, difficulty swallowing and foreign body sensation in his esophagus. I was asked to see him for an evaluation of a possible foreign body and for upper endoscopy. PAST MEDICAL HISTORY: Overall unremarkable. He is a diabetic. He takes insulin and pills. He has been taking some anti-inflammatory medicine. PAST SURGICAL HISTORY: Shoulder surgery. ALLERGIES: ACETAMINPHEN, HYDROCODONE. PHYSICAL EXAMINATION: He is alert and oriented. HEENT: Pupils equal and normoreactive. NECK: Supple. COR: Regular rhythm. ABDOMEN: Soft, tender in the epigastric area. EXTREMITIES: Within normal limits. No pedal edema. LAB DATA AND TESTS: IMPRESSION: Epigastric pain, difficulty swallowing, possible foreign body in the esophagus. PLAN: Proceed with upper endoscopy.
--- NOTE | 2018-04-14 08:45 | OP ---
SURGERY DATE: 04/12/2018 1528 PREOPERATIVE DIAGNOSIS: Possible foreign body in the esophagus and dysphagia. POSTOPERATIVE DIAGNOSES: 1) Possible esophageal spasm. No foreign body in the esophagus identified. 2) Mild duodenitis. PROCEDURE: EGD. SURGEON: Fox Tidwell M.D. ANESTHESIA: MAC. DESCRIPTION OF PROCEDURE: The patient was taken to the endoscopy lab, was given MAC anesthesia. The scope introduced and advanced without difficulty in the upper esophagus down to the esophageal-gastric junction to the stomach, then negotiated through the pyloric channel to the first and second portions of the duodenum. The first portion of the duodenum appeared to be somewhat swollen and edematous. No ulcers were seen. A biopsy was taken from the duodenum to rule out duodenitis. Biopsy was taken from the antrum for Helicobacter pylori to rule out gastritis. At this point we elected to dilate distal esophagus with a balloon dilator. An 18 to 20 mm balloon was used and this was inflated up to 20 mm. The patient tolerated this procedure well. The remainder of the exam was unremarkable. IMPRESSION: Possible esophageal spasm and mild duodenitis. No ulcers identified. No stricture. No foreign body in the esophagus was seen. RECOMMENDATION: Start Protonix 40 mg p.o. daily.
[2018-04-14] MEDS ORDERED: Glucophage XR 500 MG PO SCH (10:00)
== END 2018-04-12 17:27 | disposition home or self-care (01) ==
LOC: ED 21:50 → MED SURG 04-12 00:59
PROVIDERS: ADMIT Family Medicine; ATTEND Family Medicine
DX: K22.4 Dyskinesia of esophagus (principal); K29.80 Duodenitis without bleeding; R13.0 Aphagia; I10 Essential (primary) hypertension; R13.19 Other dysphagia; R10.13 Epigastric pain; E11.9 Type 2 diabetes mellitus without complications; Z79.4 Long term (current) use of insulin; Z79.899 Other long term (current) drug therapy; Z23 Encounter for immunization
CPT/HCPCS: 36000; 36415; 71045; 71260; 80053; 80061; 82962; 83721; 84484; 85025; 85379; 85610; 90686; 93005; 93041; 93268; 96360; 96361; 96374; 99285; C1726; G0008; J1200; J2270; J2405; J2704; J3010; A9270-GY; G0378